=== PATIENT | female | born 1980 | race Asian ===

== ENCOUNTER 2025-08-24 12:13 | Emergency (ER) | payer SELFPAY ==
[~2025-08-24] VITALS: Ht 157.5 cm; Wt 64.9 kg
[2025-08-24 12:35] VITALS: BP 146/117; TEMP 98.1
[2025-08-24] MEDS ORDERED: TRIA80OI TP (12:56)
[2025-08-24] MEDS ORDERED: KETO120S5 TP (12:56)
[2025-08-24 13:27] VITALS: O2SAT 99
== END 2025-08-24 13:29 | disposition home or self-care (01) ==
LOC: ER 12:19
DX: L21.9 Seborrheic dermatitis, unspecified (principal)